=== PATIENT | male | born 1955 | race Caucasian/White ===

== ENCOUNTER 2017-06-04 18:15 | Emergency (ER) | payer OTHER ==
[2017-06-04 18:20] VITALS: BP 150/90; PULSE 66; TEMP 98; BMI 37.2
[2017-06-04 19:53] LABS: BASOPHIL 0.4 % (0-2.0); EOSINOPHIL 0.9 % (0-4.5); MCH 30.7 pg (25.7-33.7); MCHC 33.3 g/dl (32.0-35.9); MEAN CELL VOLUME 92.3 fl (80-96); NEUTROPHILS 63.2 % (42.8-82.8); PLATELET COUNT 176 K/MM3 (134-434); RDW 12.9 % (11.9-15.9); WHITE BLOOD COUNT 5.5 K/mm3 (4.0-10.0)
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
[2017-06-04 20:14] LABS: INR 1.09 (0.82-1.09)
[2017-06-04 20:22] LABS: ALBUMIN 3.1 g/dl (3.4-5.0); ANION GAP 5 (8-16); BILIRUBIN,TOTAL 0.4 mg/dL (0.2-1.0); CALCIUM 8.2 mg/dL (8.5-10.1); CO2 28 mmol/L (21-32); CREATININE 0.8 mg/dL (0.7-1.3); GLUCOSE,RANDOM 90 mg/dL (74-106); MAGNESIUM 2.3 mg/dL (1.8-2.4); SGOT/AST 21 U/L (15-37); SGPT/ALT 21 U/L (12-78); TOT PROT 6.5 g/dl (6.4-8.2)
[2017-06-04 20:25] LABS: ALK PHOS 79 U/L (45-117); TROPONIN I < 0.02 ng/ml (0.00-0.05)
[2017-06-04] MEDS ORDERED: KETOROLAC TROMETHAMINE 60 MG/2 ML VIAL IM ONE (20:49)
[2017-06-04] MEDS ORDERED: KETOROLAC TROMETHAMINE 60 MG/2 ML VIAL ONE (21:09)
--- NOTE | 2017-06-07 13:16 | EKG ---
Test Reason : Blood Pressure : / mmHG Vent. Rate : 065 BPM Atrial Rate : 065 BPM P-R Int : 144 ms QRS Dur : 110 ms QT Int : 398 ms P-R-T Axes : 033 -38 -05 degrees QTc Int : 413 ms NORMAL SINUS RHYTHM POSSIBLE LEFT ATRIAL ENLARGEMENT LEFT AXIS DEVIATION LEFT VENTRICULAR HYPERTROPHY ABNORMAL ECG NO PREVIOUS ECGS AVAILABLE Confirmed by RUY MILLER MD ([id number]) on 06/07/2017 1:15:31 PM Referred By: Confirmed By:RUY MILLER MD
== END 2017-06-04 22:11 | disposition home or self-care (01) ==
LOC: JER 18:15
PROC: 3E0233Z Introduction of Anti-inflammatory into Muscle, Percutaneous Approach (ICD-10-PCS; principal; 2017-06-04)
DX: M94.0 Chondrocostal junction syndrome [Tietze] (principal); M79.602 Pain in left arm
CPT/HCPCS: 36415; 71020-TC; 80053; 82550; 83735; 84484; 85025; 85610; 93005; 93010; 96372; 99283-25

== ENCOUNTER 2022-03-02 21:29 | Observation (INO) | payer OTHER ==
[2022-03-02 22:06] VITALS: BMI 36.5
[2022-03-02 23:09] LABS: BASO % 0.2 % (0-2.0); HEMATOCRIT 41.2 % (35.4-49); LYMPH % 35.6 % (8-40); MCH 30.7 pg (25.7-33.7); MCHC 33.9 g/dl (32.0-35.9); MEAN CELL VOLUME 90.6 fl (80-96); MONO % 7.1 % (3.8-10.2); NEUT % 55.1 % (42.8-82.8); PLATELET COUNT 184 10^3/uL (134-434); RBC 4.55 M/mm3 (4.00-5.60); RDW 13.1 % (11.9-15.9); WHITE BLOOD COUNT 6.1 K/mm3 (4.0-10.0)
[2022-03-02 23:28] LABS: CALCIUM 8.8 mg/dL (8.5-10.1)
[2022-03-02 23:29] LABS: BLOOD UREA NITROGEN 11.9 mg/dL (7-18)
[2022-03-02 23:34] LABS: BILIRUBIN,TOTAL 0.4 mg/dL (0.2-1); TOT PROT 6.8 g/dl (6.4-8.2)
[2022-03-02] MEDS ORDERED: MECLIZINE HCL 25 MG TABLET (FP) PO ONE (23:59)
[2022-03-03] MEDS ORDERED: MECLIZINE HCL 25 MG TABLET (FP) ONE (00:24)
[2022-03-03] MEDS ORDERED: ENOXAPARIN NA (PORCINE) 40 MG/0.4 ML DISP.SYRIN SQ SCH (10:00)
[2022-03-03] MEDS ORDERED: ENOXAPARIN NA (PORCINE) 40 MG/0.4 ML DISP.SYRIN SQ ONE (10:04)
[2022-03-03 15:53] VITALS: BP 114/81; PULSE 63; TEMP 97.3
== END 2022-03-03 16:04 | disposition home or self-care (01) ==
LOC: JER 21:29 → UNDOADMOB 03-03 01:59 → JERBED 03-03 01:59 → INTOOBSV 03-03 02:41 → OBSVTOIN 03-03 02:41 → JERBED 03-03 07:39
PROVIDERS: ADMIT Internal Medicine; ATTEND Nurse Practitioner Acute Care
PROC: 3E023GC Introduction of Other Therapeutic Substance into Muscle, Percutaneous Approach (ICD-10-PCS; principal; 2022-03-03)
DX: G45.9 Transient cerebral ischemic attack, unspecified (principal); R42 Dizziness and giddiness; I10 Essential (primary) hypertension; E66.9 Obesity, unspecified; Z68.36 Body mass index [BMI] 36.0-36.9, adult; Z29.9 Encounter for prophylactic measures, unspecified; H91.90 Unspecified hearing loss, unspecified ear
CPT/HCPCS: 36415; 70450-TC; 70551-TC; 80053; 84484; 85025; 93005; 93010; 93306-TC; 93880-TC; 96372; 97116-GP; 97161-GP; 99285-25; C9803-CS; G0378; U0003; U0005

== ENCOUNTER 2025-02-23 15:02 | Emergency (ER) | payer OTHER ==
[2025-02-23 15:13] VITALS: BP 133/70; PULSE 65; RESP 16; TEMP 98.4; BMI 32.2
[2025-02-23 16:52] LABS: PH,URINE 6.5 (5.0-8.0); URINE APPEARANCE CLEAR; URINE BILIRUBIN NEGATIVE (NEGATIVE); URINE COLOR YELLOW; URINE GLUCOSE (UA) NEGATIVE (NEGATIVE); URINE KETONE NEGATIVE (NEGATIVE); URINE LEUK ESTERASE 3+ (NEGATIVE); URINE NITRITE NEGATIVE (NEGATIVE); URINE PROTEIN NEGATIVE (NEGATIVE); URINE UROBILINOGEN 0.2 mg/dL (0.2-1.0)
[2025-02-23] MEDS ORDERED: SULFAMETHOXAZOLE/TRIMETHOPRIM 800MG/160MG D.S. TABLET ONE (17:27)
[2025-02-23] MEDS: SULFAMETHOXAZOLE/TRIMETHOPRIM 800MG/160MG D.S. TABLET PO ONE (17:29)
[2025-02-23 18:03] LABS: EPI CELLS 9.6 /uL (0-25.1); HYALINE CASTS 0.13 /uL (0-3.1); URINE RBC 5.4 /uL (0-23.9); URINE WBC 91.7 /uL (0-25.8)
== END 2025-02-23 18:23 | disposition home or self-care (01) ==
LOC: JER 15:02
DX: N39.0 Urinary tract infection, site not specified (principal); T83.091A Other mechanical complication of indwelling urethral catheter, initial encounter
CPT/HCPCS: 81003; 87086; 87186; 99283-25

== ENCOUNTER 2025-03-10 17:38 | Emergency (ER) | payer OTHER ==
[2025-03-10 17:43] VITALS: BMI 29.9
[2025-03-10] MEDS ORDERED: MECLIZINE HCL 25 MG TABLET (FP) ONE (19:22)
[2025-03-10] MEDS: MECLIZINE HCL 25 MG TABLET (FP) PO ONE (19:33)
[2025-03-10 19:41] LABS: ABSOLUTE IMMATURE GRANULOCYTES 0.03 x10^3/uL (0.0-0.031); BASOPHILS # 0.03 x10^3/uL (0.01-0.08); EOSINOPHIL % 2.8 % (0.8-7.0); EOSINOPHILS # 0.21 x10^3/uL (0.04-0.54); HEMOGLOBIN 12.2 g/dL (13.7-17.5); MCHC 33.9 g/dl (32.3-36.5); MEAN CELL VOLUME 92.8 fl (79.0-92.2); MEAN PLT VOLUME 9.6 fl (9.4-12.4); MONOCYTE # 0.43 x10^3/uL (0.30-0.82); MONOCYTE % 5.8 % (5.3-12.2); PLATELET COUNT 166 x10^3/uL (163-337); RDW 12.3 % (12.2-16.4)
[2025-03-10 19:53] LABS: INR 1.1 (0.83-1.09); PROTHROMBIN TIME (PATIENT) 12.1 SEC (9.7-13.0)
[2025-03-10 19:56] LABS: ACTIVATED PTT 28.1 SECONDS (25.2-36.5)
[2025-03-10 19:59] LABS: POTASSIUM 3.8 mmol/L (3.5-5.1)
[2025-03-10 20:01] LABS: CALCIUM 8.8 mg/dL (8.5-10.1)
[2025-03-10 20:02] LABS: ALBUMIN 3.2 g/dl (3.4-5.0); BLOOD UREA NITROGEN 10.8 mg/dL (7-18); MAGNESIUM 1.9 mg/dL (1.8-2.4)
[2025-03-10 20:05] LABS: CREATININE 0.9 mg/dL (0.55-1.3)
[2025-03-10 20:07] LABS: BILIRUBIN,TOTAL 0.6 mg/dL (0.2-1); TOT PROT 6.3 g/dl (6.4-8.2)
[2025-03-10 21:28] LABS: URINE APPEARANCE CLEAR; URINE BILIRUBIN NEGATIVE (NEGATIVE); URINE COLOR YELLOW; URINE GLUCOSE (UA) NEGATIVE (NEGATIVE); URINE KETONE NEGATIVE (NEGATIVE); URINE LEUK ESTERASE NEGATIVE (NEGATIVE); URINE NITRITE NEGATIVE (NEGATIVE); URINE PROTEIN NEGATIVE (NEGATIVE); URINE UROBILINOGEN 0.2 mg/dL (0.2-1.0)
[2025-03-10 21:46] VITALS: BP 136/82; PULSE 58; RESP 20; TEMP 98.1
== END 2025-03-10 22:15 | disposition home or self-care (01) ==
LOC: JER 17:38
DX: R42 Dizziness and giddiness (principal); R55 Syncope and collapse; R26.81 Unsteadiness on feet; H93.19 Tinnitus, unspecified ear
CPT/HCPCS: 0241U-QW; 36415; 70450-TC; 71046-TC-FY; 72125-TC; 80053; 81003; 83735; 84484; 85025; 85610; 85730; 93005; 93010; 99285-25